=== PATIENT | female | born 1940 | race Caucasian/White ===

== ENCOUNTER 2018-09-16 09:41 | Outpatient (CLI) | payer MEDICARE ==
[~2018-09-16 09:41] MED LIST: Gadobenate Dimeglumine 529 MG/1 ML (20ML VIAL) ONE
--- NOTE | 2018-09-16 11:33 | RAD ---
MRI clearance exam: Radiograph skull 2 views: 09/16/2018 HISTORY: 69-year-old female scheduled for MRI of the thoracic spine. History of intracranial metallic object p lacement, exact etiology unknown. FINDINGS: There are left pterional view craniotomy changes with metallic fasteners of craniotomy flap. GDC coil s are present in the left carotid siphon, and normal what is presumably a large intracranial aneurysm is left paramedian anterior circulation. IMPRESSION: From intracranial metallic foreign body standpoint, the patient is cleared for MRI of the thoracic sp ine.
--- NOTE | 2018-09-16 13:05 | MRI ---
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 COMPARISON: None available FINDINGS: Vertebral body heights are maintained. Bone marrow signal is normal. There are discogenic degenerativ e changes, mostly mild, at several levels in the mid and lower thoracic spine. Minimal grade 1 anterolisthesis of T10 on T11 to bilateral degenerative facet disease. This results in moderate centr al spinal canal stenosis at T10-11. No tyshawn cord compression. Ligamentum flavum calcification and thickening bilaterally at T8-9, T9-10, and T10/11, causes moderate central spinal canal stenoses. The degree of stenosis at T8-9 there is totally is moderate-severe. The thoracic spinal cord is normal in size for patient's age, and normal in signal. No syrinx. Conus medullaris terminates at L1. Small bilateral pleural effusions. Multiple T2 hyperintense focal circumscribed lesions in the right lobe of liver, incompletely imaged. Somewhat severe left neural foraminal stenosis at T10-11 due to left f acet osteophytosis, with probable chronic impingement on the exiting left T10 nerve root. Lesser degrees of moderate neural foraminal stenosis bilaterally at T9-10 and on the right at T10-11. Probab le bilateral tiny pleural effusions. No abnormal enhancement in the intramedullary, extramedullary-intradural, intraosseous, perivertebral, or extradural, spaces. IMPRESSION: 1) no evidence of multiple myeloma in the thoracic spine. 2) tiny bilateral pleural effusions. 3) severe left neural foraminal stenosis at T10-11. 4) moderate central stenosis at several levels in the lower thoracic spine due to calcified ligamentu m flavum.
== END 2018-09-16 09:42 | disposition home or self-care (01) ==
LOC: BICMRI 09:41
PROVIDERS: ATTEND Internal Medicine Hematology & Oncology
DX: E85.81 Light chain (AL) amyloidosis (principal); M54.6 Pain in thoracic spine; G89.29 Other chronic pain; J90 Pleural effusion, not elsewhere classified; M48.04 Spinal stenosis, thoracic region; Z98.890 Other specified postprocedural states
CPT/HCPCS: 70250; 72157; 82565; A9577